=== PATIENT | female | born 1995 | race Caucasian/White ===

== ENCOUNTER 2017-01-14 08:54 | Emergency (ER) | payer OTHER ==
[~2017-01-14] VITALS: Ht 167.6 cm; Wt 52.7 kg
[2017-01-14 08:59] VITALS: TEMP 36.4; Ht 167.6 cm; Wt 52.7 kg
[2017-01-14] MEDS ORDERED: PHENAZOPYRIDINE HCL 200 MG TAB PO STA (09:45)
[2017-01-14] MEDS ORDERED: HYDROCODONE/ACETAMOPHEN 5/325MG TAB PO ONE (09:45)
--- NOTE | 2017-01-14 09:54 | EMERGENCY ROOM VISIT NOTE ---
History Report prepared by Faye: Abbey Molina Under the Supervision of: Dr. Jaden Dietz M.D. First contact with patient: 09:41 Chief Complaint: URINARY SYMPTOMS Stated Complaint: UTI Nursing Triage Summary: Pain, burning and blood noted on urination. "I have had really bad UTIs in the past." per pt. History of Present Illness The patient is a 21 year old female who presents to the Emergency Room with complaints of severe burning when she urinates starting a few days ago. She states that she has had urinary tract infections before and this feels similar to them. She states that she usually gets a urinary tract infection twice a year. She reports taking five Advil in a three hour time span early this morning with no relief. The patient reports that she is experiencing chills a fever, headache, and constipation. She denies back pain, the chance of , and abdominal pain. Source of History: patient Onset: few days ago Symptom Intensity: severe Quality: burning Associated Symptoms: + chills, + fevers, + headache, No abdominal pain, No back pain Review of Systems All systems have been listed, reviewed, and are negative other than those previously mentioned. Please see Additional Medical History Sheet. Past Medical & Surgical Medical Problems: (1) Asthma (2) Factor X deficiency Family History Cancer Heart disease Hypertension Social History Smoking Status: Never Smoker Smokeless Tobacco Use: No Alcohol Use: none Housing Status: lives with roommate Occupation Status: unemployed Current/Historical Medications Scheduled Phenazopyridine Hcl (Pyridium), 200 MG PO TID Sulfa/Trimethoprim (Bactrim Ds 800MG/160MG), 1 TAB PO BID Allergies Coded Allergies: Amoxicillin (Verified Allergy, Intermediate, Hives, 01/14/17) Cefaclor (Verified Allergy, Intermediate, Hives, 01/14/17) Tetracycline (Verified Allergy, Intermediate, Hives, 01/14/17) Physical Exam Vital Signs Date Time Temp Pulse Resp B/P Pulse Ox O2 Delivery O2 Flow Rate FiO2 01/14/17 10:39 86 16 141/84 96 01/14/17 08:59 36.4 100 20 137/86 97 Room Air Physical Exam GENERAL: Patient awake, alert, oriented x 3. Patient follows commands. Patient does not appear toxic. Patient is adequately hydrated and well- nourished. SKIN: No erythema, pallor, cyanosis or rash HEENT: Normal head, pupils equal, reactive to light and accommodation. LUNGS: Clear to auscultation. No wheezes, no rales, no rhonchi. HEART: No murmurs. No gallops. No rubs ABDOMEN: No masses, no rebound, no hepatomegaly or splenomegaly. No CVA tenderness. EXTREMITIES: No signs of trauma. No pedal or pretibial edema. No calf or thigh tenderness. NEUROLOGIC: Cranial nerves II-XII within normal limits. No gross motor sensory function deficits. Medical Decision & Procedures Laboratory Results Test 01/14/17 09:40 Urine Color RED Urine Appearance TURBID (CLEAR) Urine pH 6.0 (4.5-7.5) Urine Specific [place] 1.020 (1.000-1.030) Urine Protein 2+ (NEG) Urine Glucose (UA) NEG (NEG) Urine Ketones 1+ (NEG) Urine Occult Blood 3+ (NEG) Urine Nitrite NEG (NEG) Urine Bilirubin NEG (NEG) Urine Urobilinogen NEG (NEG) Urine Leukocyte Esterase MODERATE (NEG) Urine RBC >30 /hpf (0-4) Urine WBC >30 /hpf (0-5) Urine Epithelial Cells 5-10 /lpf (0-5) Urine Bacteria NEG (NEG) Laboratory results as stated above per my review. Medications Administered Medications (Trade) Dose Ordered Sig/Justine Route Start Time Stop Time Status Last Admin Dose Admin Acetaminophen/ Hydrocodone Bitart ([place] 5/325 Tab) 2 tab ONE ONCE PO 01/14/17 09:45 01/14/17 09:48 DC 01/14/17 10:10 2 TAB Phenazopyridine HCl (Pyridium Tab) 200 mg NOW STAT PO 01/14/17 09:45 01/14/17 09:48 DC 01/14/17 10:10 200 MG ED Course 0943: Past medical records reviewed. The patient was evaluated in room B8. A complete history and physical examination was performed. 0945: Pyridium Tab 200 mg Po, [place] 5/325 Tab 2 tab PO. 1040: Upon reevaluation, the patient appeared to have improvement of her symptoms. I discussed today's findings with the patient. She verbalized agreement of the treatment plan. The patient was discharged home. Medical Decision Differential diagnoses include pyelonephritis, urinary tract infection, kidney stones. The patient is here with urinary tract symptoms similar to what she has experienced in the past. The patient has significant blood in her urine. She does not have CVA tenderness. I do not think she has pyelonephritis. The patient has been on sulfa in the past and she will be placed on Bactrim at this time. She will also be given a prescription for Pyridium. The patient was given [place] here but I do not expect her to need that at home. Impression Primary Impression: Urinary tract infection Scribe Attestation The scribe's documentation has been prepared under my direction and personally reviewed by me in its entirety. I confirm that the note above accurately reflects all work, treatment, procedures, and medical decision making performed by me. Departure Information Dispostion Home / Self-Care Prescriptions Phenazopyridine Hcl (PYRIDIUM) 200 Mg Tab 200 MG PO TID, #6 TAB Prov: Jaden Dietz M.D. 01/14/17 Sulfa/Trimethoprim (Bactrim Ds 800MG/160MG) Tab 1 TAB PO BID, #20 TAB Prov: Jaden Dietz M.D. 01/14/17 Referrals No Doctor, Assigned (PCP) Forms HOME CARE DOCUMENTATION FORM, IMPORTANT VISIT INFORMATION Patient Instructions ED UTI Cystitis Female, My [facility] [place] Additional Instructions One Bactrim twice a day for 10 days. 200 mg of Pyridium 3 times a day. Drink extra fluids. Follow-up with your family physician in 2 weeks for a repeat urinalysis.
[2017-01-14 10:18] LABS: MANUAL MICROSCOPIC REQUIRED? YES; URINE APPEARANCE TURBID (CLEAR); URINE BILIRUBIN NEG (NEG); URINE COLOR RED; URINE NITRITE NEG (NEG); UROBILINOGEN NEG (NEG)
[2017-01-14 10:20] LABS: REVIEW REQ? NO
[2017-01-14 10:23] LABS: URINE RBC >30 /hpf (0-4)
[2017-01-14 10:25] LABS: URINE BACTERIA NEG (NEG); URINE WBC >30 /hpf (0-5)
[2017-01-14 10:26] LABS: ZZUR CULT IF INDIC CLEAN CATCH YES
[2017-01-14] MEDS ORDERED: SULF800T23 PO (10:29)
[2017-01-14] MEDS ORDERED: PHEN-775 PO (10:29)
[2017-01-14 10:39] VITALS: BP 141/84; PULSE 86; O2SAT 96
--- NOTE | 2017-01-17 12:59 | Pharmacy Progress Note ---
ED Pharmacist Culture FollowUp Date of Service: Jan 17, 2017. Called patient regarding urine culture. Left message. RN noted patient called back and that prescription should be called to [facility] Adity[facility] Larson. I called in prescription for Macrobid 100 mg po BID x5 days. Case discussed with Dr. Dietz, who is the prescribing provider.
== END 2017-01-14 10:40 | disposition home or self-care (01) ==
LOC: C.EDB 08:55
DX: N39.0 Urinary tract infection, site not specified (principal); J45.909 Unspecified asthma, uncomplicated; D68.2 Hereditary deficiency of other clotting factors; Z82.49 Family history of ischemic heart disease and other diseases of the circulatory system